=== PATIENT | female | born 1955 | race Caucasian/White ===

== ENCOUNTER → 2017-04-11 | Outpatient (CLI) | payer BC ==
[~2017-04-11] MED LIST: OXYC-292 PO
--- NOTE | 2017-04-12 12:46 | MAMMOGRAPHY REPORT ---
BILATERAL DIGITAL SCREENING MAMMOGRAM TOMOSYNTHESIS WITH CAD: 04/11/2017 CLINICAL HISTORY: Routine screening. Patient has no complaints. TECHNIQUE: Breast tomosynthesis in addition to standard 2D mammography was performed. Current study was also evaluated with a Computer Aided Detection (CAD) system. COMPARISON: Comparison is made to exams dated: 02/05/2015 mammogram, 02/06/2013 mammogram, 04/10/2011 ma mmogram, 01/19/2010 mammogram - [facility], 11/09/2008, and 09/21/2006. BREAST COMPOSITION: There are scattered areas of fibroglandular density in both breasts. FINDINGS: The parenchymal pattern is similar to prior exams. No developing mass, architectural dist ortion or cluster of suspicious microcalcifications is seen in either breast. IMPRESSION: ACR BI-RADS CATEGORY 2: BENIGN There is no mammographic evidence of malignancy. A 1 year screening mammogram is recommended. The pa tient will receive written notification of the results. Approximately 10% of breast cancers are not detected with mammography. A negative mammographic report should not delay biopsy if a clinically suggestive mass is present. Anastasiia Enciso M.D. ay/:04/11/2017 15:25:46 Muck Operator: Aliiva ALICEA(Daryn)(John)(BD), [facility] letter sent: Normal 1/2 BI-RADS Code: ACR BI-RADS Category 2: Benign
== END | disposition home or self-care (01) ==
LOC: C.MAMM 13:49
PROVIDERS: ATTEND Family Medicine
DX: Z12.31 Encounter for screening mammogram for malignant neoplasm of breast (principal)

== ENCOUNTER → 2017-10-08 | Outpatient (CLI) | payer OTHER ==
--- NOTE | 2017-10-08 09:43 | DIAGNOSTIC IMAGING REPORT ---
L FOOT MIN 3 VIEWS ROUTINE CLINICAL HISTORY: 62 years-old Female presenting with L FOOT PAIN. TECHNIQUE: Frontal, oblique, and lateral views of the left foot were obtained. COMPARISON: None. FINDINGS: Small bone spur at the inferior calcaneus at the origin of the plantar fascia. No acute fracture or malalignment. No other degenerative change. No radiographic soft tissue abnormality. IMPRESSION: No acute osseous injury of the left foot. Electronically signed by: Wilmer Demarco M.D. 10/08/2017 9:42 AM Dictated Date/Time: 10/08/2017 9:40 AM
== END | disposition home or self-care (01) ==
LOC: C.RAD1850 09:33
PROVIDERS: ATTEND Family Medicine
DX: M79.672 Pain in left foot (principal)